=== PATIENT | female | born 1975 | race Two or more races ===

== ENCOUNTER 2018-06-16 10:15 | Inpatient (IN) | payer OTHER ==
[~2018-06-16] VITALS: Ht 175.3 cm; Wt 144.2 kg
[2018-06-16] MEDS ORDERED: AMLODIPINE BESY10 MG PO (15:03)
== END 2018-06-21 10:45 | DRG 743 ==
LOC: O/R 06-18 09:48 → RECOVERY 06-18 10:00 → OB/GYN 06-18 22:56
PROVIDERS: ADMIT Obstetrics & Gynecology
PROC: 0UB90ZZ Excision of Uterus, Open Approach (ICD-10-PCS; 2018-06-18)
PROC: 0UT90ZL Resection of Uterus, Supracervical, Open Approach (ICD-10-PCS; principal; 2018-06-18 10:00)
DX: D25.1 Intramural leiomyoma of uterus (principal); N72 Inflammatory disease of cervix uteri